=== PATIENT | female | born 1950 | race Caucasian/White ===

== ENCOUNTER 2021-07-04 11:54 | Outpatient (CLI) | payer MEDICARE, OTHER | END 2021-07-04 11:55 | disposition home or self-care (01) | LOC: CSHMAMMO 11:54 | PROVIDERS: ATTEND Family Medicine | DX: Z12.31 Encounter for screening mammogram for malignant neoplasm of breast (principal) | CPT/HCPCS: 77063; 77067 ==

== ENCOUNTER 2021-07-21 11:58 | Outpatient (CLI) | payer MEDICARE, OTHER | END 2021-07-21 11:59 | disposition home or self-care (01) | LOC: CSHCT 11:58 | PROVIDERS: ATTEND Physician Assistant | DX: M54.41 Lumbago with sciatica, right side (principal); K83.9 Disease of biliary tract, unspecified; M47.816 Spondylosis without myelopathy or radiculopathy, lumbar region | CPT/HCPCS: 72131 ==

== ENCOUNTER 2021-08-26 12:04 | Outpatient (CLI) | payer MEDICARE, OTHER | END 2021-08-26 12:05 | disposition home or self-care (01) | LOC: CSHCT 12:04 | PROVIDERS: ATTEND Physician Assistant Medical | DX: K83.8 Other specified diseases of biliary tract (principal); R74.8 Abnormal levels of other serum enzymes | CPT/HCPCS: 74170; 82565 ==

== ENCOUNTER 2022-02-27 07:31 | Outpatient (CLI) | payer MEDICARE, OTHER ==
[2022-02-27] MEDS ORDERED: Iopamidol 370 76% 100 ML VIAL ONE (08:45)
== END 2022-02-27 07:32 | disposition home or self-care (01) ==
LOC: CSHCT 07:31
PROVIDERS: ATTEND Family Medicine
DX: K83.9 Disease of biliary tract, unspecified (principal); R19.8 Other specified symptoms and signs involving the digestive system and abdomen
CPT/HCPCS: 74170; 82565; Q9967